=== PATIENT | male | born 1990 | race Caucasian/White ===

== ENCOUNTER 2019-03-13 01:28 | Emergency (ER) | payer OTHER, BC ==
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
[2019-03-13 02:02] VITALS: BP 143/71; PULSE 100
== END 2019-03-13 02:00 | disposition home or self-care (01) ==
LOC: KA.ED 01:28
DX: S00.83XA Contusion of other part of head, initial encounter (principal); Z88.1 Allergy status to other antibiotic agents; W22.8XXA Striking against or struck by other objects, initial encounter
CPT/HCPCS: 99283